=== PATIENT | male | born 1935 | race Caucasian/White ===

== ENCOUNTER 2017-12-26 15:56 | Inpatient (IN) | payer MEDICARE ==
[~2017-12-26] VITALS: Ht 177.8 cm; Wt 102.0 kg
--- NOTE | ~2017-12-26 | OP ---
PATIENT NAME: NICOLLE ROBERTSON MEDICAL RECORD: [id number] :34 LOCATION:D.M2 D.2115 ADMISSION DATE:12/27/17 SURGEON: OSCAR WALSH MD DATE OF OPERATION: 12/29/2017 PROCEDURES: 1. PTCA stent RCA. 2. Intravascular ultrasound RCA. 3. Selective coronary angiography. INDICATION: Angina and coronary artery disease. PROCEDURE IN DETAIL: After informed consent was obtained and after detailed explanation of risks, benefits as well as alternative therapies, the patient elected to proceed with angiogram and angioplasty. The right femoral area is prepped and draped in normal sterile fashion. The left femoral area was prepped and draped in normal sterile fashion. Left femoral artery was cannulated via modified Seldinger technique with placement of 6-Uzbek sheath. All catheters exchanged through this sheath. FINDINGS: The right coronary has 2 areas greater than 70% stenosis confirmed by intravascular ultrasound, the mid area was addressed with a 3.0 x 18 mm [place], and the proximal with 3.5 x 22 mm [place]. Result was 0% residual stenosis. OVERALL IMPRESSION: Successful percutaneous transluminal coronary angioplasty stent of the right coronary artery going from greater than 70% initial stenosis times 2 to 0% residual stenosis. TRANSINT:[id number] Voice Confirmation ID: [id number] DOCUMENT ID: [id number] OSCAR WALSH MD CC: [id number] DICTATION DATE: 12/30/17 1321 MICA PASTER: 12/30/17 1338 ADM IN [facility] [address] [place] [address]
--- NOTE | ~2017-12-26 | DS ---
PATIENT:NICOLLE ROBERTSON :33 MEDICAL RECORD: [id number] DISCHARGE SUMMARY ADMISSION DATE: 12/27/17 DISCHARGE DATE: 12/31/17 DISCHARGE DIAGNOSES: 1. Angina. 2. Coronary artery disease. 3. Percutaneous transluminal coronary angioplasty stent of the right coronary artery and left anterior descending this admission. 4. Chronic obstructive pulmonary disease. 5. Bronchitis. 6. Hyperlipidemia. 7. Hypertension. HOSPITAL COURSE: This is a gentleman who presents with anginal symptomatology as well as COPD, bronchitis, was treated medically for the COPD, bronchitis with antibiotics and pulmonary treatment, underwent cardiac catheterization revealing 2-vessel coronary artery disease, underwent successful PTCA stent of above territories, had an uneventful postop course. Discharged home with the addition of Augmentin times 5 days as well as Plavix to his medical regimen. He will follow up with [facility] in 1 month. TRANSINT:[id number] Voice Confirmation ID: [id number] DOCUMENT ID: [id number] OSCAR WALSH MD CC: [id number] DICTATION DATE: 12/31/17920 CIGAR BANDER: 12/31/17 1208 DIS IN 12/31/17 [facility] [address] [place] [address]
--- NOTE | ~2017-12-26 | OP ---
PATIENT NAME: NICOLLE ROBERTSON MEDICAL RECORD: [id number] :34 LOCATION:D.M2 D.2115 ADMISSION DATE:12/27/17 SURGEON: OSCAR WALSH MD DATE OF OPERATION: 12/29/2017 DATE OF SERVICE: 12/29/2017 PROCEDURES: 1. PTCA stent LAD. 2. Left heart catheterization. 3. Selective coronary angiography. 4. Left ventriculogram. INDICATION: Unstable angina and coronary artery disease. PROCEDURE IN DETAIL: After informed consent was obtained and after detailed explanation of risks, benefits as well as alternative therapies, the patient elected to proceed with angiogram and angioplasty. The right femoral area was prepped and draped in normal sterile fashion. The right femoral artery was cannulated via modified Seldinger technique with placement of 6-Tajik sheath. All catheters exchanged through this sheath. FINDINGS: Left ventriculogram was performed in a standard 30-degree CANAS view, reveals good cardiac wall motion throughout all segments. Overall ejection fraction estimated at 60%. SELECTIVE CORONARY ANGIOGRAPHY: 1. Left main showed no significant angiographic disease. 2. Left anterior descending has a 99% stenosis in the mid vessel. 3. Left circumflex has moderate irregularities, but no flow-limiting stenosis. 4. Right coronary has at least 70% stenosis proximally, better confirmed by intravascular ultrasound. PTCA STENT OF THE LEFT ANTERIOR DESCENDING: The stent used was a 2.5 x 22 and 3.0 x 18 both [place] stents. Result was 0% residual stenosis. OVERALL IMPRESSION: Successful percutaneous transluminal coronary angioplasty stent of the left anterior descending going from 99% initial stenosis to 0% residual. PLAN: PTCA stent of the RCA in the near future. TRANSINT:[id number] Voice Confirmation ID: [id number] DOCUMENT ID: [id number] OSCAR WALSH MD CC: [id number] DICTATION DATE: 12/29/1709 MATCH MARKER: 12/29/17 1159 ADM IN [facility] [address] [place] [address]
--- NOTE | ~2017-12-26 | HEMODYNAMI ---
PATIENT:NICOLLE ROBERTSON MEDICAL RECORD: [id number] : 34 [id number] ADMISSION DATE: 12/27/17 Generatedon:12/30/201713:27 Patient name: NICOLLE ROBERTSON Patient #: [id number] SSN: : 1935 Date of study: 12/30/2017 Page: Of Hemodynamic Procedure Report Patient Data Patient Demographics Procedure consent was obtained First Name: NICOLLE Gender: Male Last Name: AILYN : 1935 Middle Initial: MASOOD Age: 82 year(s) Patient #: [id number] Race: Additional ID: [id number] Contact details [address]: [address] [place] [address] State: [place] City: [place] Zip code: [address] Past Medical History History of disease Date Diagnosis Comments COPD Hypertension Allergies: No known allergies Admission Admission Data Admission Date: 12/27/2017 Admission Time: 12:53 Admit Source: Other Room #: D.2115 Lab Results Lab Result Date: 12/29/2017 Lab Result Time: 0:00 Biochemistry Name Units Result Min Max BUN mg/dl 13 --(--*-)-- 7 18 Creatinine mg/dl 0.9 --(-*--)-- 0.6 1.3 Procedure Procedure Types Cath Procedure Diagnostic Procedure FFR/IVUS Intra-Coronary IVUS Initial PCI Procedure Coronary Stent Coronary Stent Initial Procedure Description Procedure Date Procedure Date: 12/30/2017 Procedure Start Time: 13:09 Procedure End Time: 13:26 Procedure Staff Name Function Jovan Gonzalez MD Performing Physician John Tyler RT Monitor Cheikh Cervantes RN Nurse Lynne Clancy RT Scrub Procedure Data Cath Procedure Fluoroscopy Diagnostic fluoroscopy Total fluoroscopy Time: 3.5 time: 3.5 min min Diagnostic fluoroscopy Total fluoroscopy dose: dose: 106.78 mGy 106.78 mGy Contrast Material Contrast Material Type Amount (ml) Isovue 300 53 Entry Location Entry Primary Successful Side Size Upsize Upsize Entry Closure Succes sful Closure Location (Fr) 1 (Fr) 2 (Fr) Remarks Device Remarks Femoral Left 6 Fr Exoseal artery Short Estimated blood loss: 10 ml Procedure Medications Medication Administration Route Dosage Oxygen NC 2 l/min Lidocaine 2% added to field 20 Heparin Flush Bag added to field 2 bags (1000units/500ml NS) 0.9% NaCl I.V. 100 ml/hr Versed I.V. 1 mg Fentanyl I.V. 50 mcg Heparin Bolus I.V. 4000 units Hemodynamics Rest Heart Rate: 59 (bpm) Snapshots Pre Cath Intra NCS Post Cath Vital Signs Time Heart Resp SPO2 etCO2 NIBP (mmHg) Rhythm Pain Sedation Rate (ipm) (%) (mmHg) Status Level (bpm) 12:54:52 59 17 99 0 149/77(100) NSR 0 (11) 10(A) , No pain 12:59:14 60 17 100 47.1 143/79(107) NSR 0 (11) 10(A) , No pain 13:03:26 65 16 99 57.7 136/81(106) NSR 0 (11) 10(A) , No pain 13:07:48 69 14 93 1.5 140/70(102) NSR 0 (11) 10(A) , No pain 13:11:58 71 16 94 54.7 133/75(112) NSR 0 (11) 9(A) , No pain 13:17:06 66 15 93 25.8 121/63(87) NSR 0 (11) 9(A) , No pain 13:21:22 67 16 96 55.4 128/70(102) NSR 0 (11) 10(A) , No pain 13:25:42 72 10 98 41 129/57(105) NSR 0 (11) 10(A) , No pain Medications Time Medication Route Dose Verified Delivered Reason Notes Effectiveness by by 12:53:55 Oxygen NC 2 Jovan Salamanca used for l/min Carlos Cervantes ramp service man 12:54:04 Lidocaine 2% added 20ml Jovan Aldana for local to vial Carlos Gonzalez MD anesthetic field 12:54:10 Heparin Flush added 2 Jovan Aldana used for Bag to bags Carlos Gonzalez MD procedure (1000units/500ml field NS) 12:54:20 0.9% NaCl I.V. 100 Jovan Cheikh Per physician ml/hr Carlos Cervantes RN 13:09:21 Versed I.V. 1 mg Jovan Salamanca for sedation Carlos Cervantes RN 13:09:27 Fentanyl I.V. 50 Jovan Salamanca for sedation mcg Carlos Cervantes RN 13:10:35 Heparin Bolus I.V. 4000 Jovan Salamanca for verifi ed units Carlos Cervantes RN anticoagulation with dr gonzalez Procedure Log Time Note 12:34:58 Diagnostic Cath Status : Elective 12:38:19 Cheikh Cervantes RN sent for patient. Start room use. 12:38:55 Time tracking: Regular hours 12:39:01 Plan of Care:Hemodynamics will remain stable., Cardiac rhythm will remain stable., Comfort level will be maintained., Respiratory function will remain adequate., Patient/ family verbilizes understanding of procedure., Procedure tolerated without complication., Recovers from procedure without complications.. 12:46:40 Patient received from PCU to CCL 3 Alert and oriented. Tansferred to table in Supine position. 12:46:44 Warm blankets applied, and bret hugger turned on for patient comfort. 12:46:44 Correct patient and procedure confirmed by team. 12:46:46 Signed procedure consent form obtained from patient. 12:46:47 ECG and BP/O2 sat monitors applied to patient. 12:53:33 Vital chart was started 12:53:34 Baseline sample Acquired. 12:53:43 Rhythm: sinus rhythm 12:53:45 Full Disclosure recording started 12:53:55 Oxygen 2 l/min NC was administered by Cheikh Cervantes RN; used for procedure; 12:54:04 Lidocaine 2% 20ml vial added to field was administered by Jovan Gonzalez MD; for local anesthetic; 12:54:10 Heparin Flush Bag (1000units/500ml NS) 2 bags added to field was administered by Jovan Gonzalez MD; used for procedure; 12:54:20 0.9% NaCl 100 ml/hr I.V. was administered by Cheikh Cervantes RN; Per physician; 12:54:33 H&P Date Dictated: 12/27/2017 Within 30 days and on chart.. 12:54:38 Pre-procedure instructions explained to patient. 12:54:40 Pre-op teaching completed and patient verbalized understanding. 12:54:42 Family in waiting room. 12:54:45 Patient NPO since Midnight. 12:54:52 Patient allergic to No known allergies 12:54:55 Is the patient allergic to Iodine/contrast media? No. 12:54:57 Is patient on blood thinner?Yes 12:55:01 ACC The patient was administered the following blood thiners within the last 24 hours: ACCPlavix 12:55:05 Patient diabetic? No. 12:55:08 ----Pre-sedation anethsthesia assessment.---- 12:55:10 Previous problem with sedation/anesthesia? No ? 12:55:13 Snore? Yes 12:55:14 Sleep apnea? No 12:55:21 Deviated septum? No 12:55:22 Opens mouth fully? Yes 12:55:24 Sticks out tongue? Yes 12:55:30 Airway obstruction? No ? 12:56:01 Dentures? No ? 12:56:18 Patient pain scale 0/10 ?. 12:59:36 IV patent on arrival in left forearm with 0.9% NaCl at [facility]. 13:06:28 Left groin area was prepped with chlora-prep and draped in sterile fashion 13:06:30 Alarms reviewed by R. N. 13:06:31 Sharps counted by scrub and verified by R.N. 13:06:34 Physician arrived 13:06:34 --------ALL STOP TIME OUT------ 13:06:35 Final Timeout: patient, procedure, and site verified with staff and physician. All members of the team are in agreement. 13:06:38 Left groin site verified by team. 13:06:44 Physical assessment completed. ASA score P 2 - A patient with mild systemic disease as per Jovan Gonzalez MD. 13:06:49 Sedation plan: IV Moderate Sedation Medication:Versed, Fentanyl 13:07:47 Use device set CARLOS PCI 13:07:49 INFLATOR Merit BasixCompak (OQ8792) opened to sterile field. 13:08:03 SHEATH 6FR [place] (SQR228) opened to sterile field. 13:08:08 WHISPER 300cm guide wire ([id number]) opened to sterile field. 13:08:20 Use device set Femoral Dx 13:08:25 PERCUTANEOUS ENTRY 19GA needle opened to sterile field. 13:08:29 ACIST Hand Control (90349) opened to sterile field. 13:08:30 ACIST Manifold (09310) opened to sterile field. 13:08:36 DIAGNOSTIC WIRE .035 260cm J wire (544399) opened to sterile field. 13:08:38 Medline Cath Pack ([id number]) opened to sterile field. 13:08:39 Bag Decanter (2002S) opened to sterile field. 13:08:41 ACIST Syringe (71925) opened to sterile field. 13:09:21 Versed 1 mg I.V. was administered by Cheikh Cervantes RN; for sedation; 13:09:27 Fentanyl 50 mcg I.V. was administered by Cheikh Cervantes RN; for sedation; 13:09:37 GUIDE 6FR HS II catheter (BL5UYHR) opened to sterile field. 13:09:44 Procedure started. 13:09:50 Local anesthetic to left femerol artery with Lidocaine 2% by Jovan Gonzalez MD.INITIAL ACCESS ONLY 13:10:00 A 6 Fr Short sheath was inserted into the Left Femoral artery 13:10:35 Heparin Bolus 4000 units I.V. was administered by Cheikh Cervantes RN; for anticoagulation; verified with dr gonzalez 13:11:57 6 Fr HS 2 guide catheter was inserted over the wire 13:13:18 [employer] [place] IVUS Catheter (24346P) opened to sterile field. 13:13:47 WHISPER wire advanced. 13:13:48 Wire advanced across lesion. 13:13:53 FFR/IVUS 13:13:53 IVUS catheter advanced over wire. 13:13:57 IVUS pass to RCA lesion performed. 13:13:58 IVUS catheter removed over wire. 13:14:59 LESION 70% 13:16:15 Inflation Number: 1 A SAGAR OTW 3.0 x 18 stent ([id number]) was prepped and advanced across the Mid RCA. The stent was deployed at 17 MYNOR for 0:10 (min:sec). 13:16:20 Stent catheter was removed intact over wire. 13:18:07 Inflation Number: 1 A SAGAR OTW 3.5 x 22 stent ([id number]) was prepped and advanced across the Prox RCA. The stent was deployed at 17 MYNOR for 0:10 (min:sec). 13:18:13 Stent catheter was removed intact over wire. 13:18:42 EXOSEAL 6Fr (EX600) opened to sterile field. 13:18:55 Wire removed. 13:18:56 Guide catheter removed. 13:19:06 Sheath removed intact; hemostasis achieved with Exoseal to the Left Femoral artery. 13:19:12 Procedure ended.(Physican Out) 13:19:17 Fluoroscopy time 03.50 minutes. 13:19:24 Fluoroscopy dose: 106.78 mGy 13:19:24 Flurop Dose total: 106.78 13:19:37 Contrast amount:Isovue 300 53ml. 13:19:39 Sharps counted by scrub and verified by R.N. 13:19:55 Procedure type changed to Cath procedure, Diagnostic procedure, FFR/IVUS, Intra-Coronary IVUS Initial, PCI procedure, Coronary Stent, Coronary Stent Initial 13:23:57 Insertion/operative site no bleeding no hematoma. 13:24:00 Post-op/insertion site Left Femoral artery dressed using a 4 x 4 and Tegaderm. 13:24:05 Post left femerol artery:stable 13:24:17 Post-procedure physical assessment completed. ASA score P 2 - A patient with mild systemic disease as per Jovan Gonzalez MD. 13:24:32 Post procedure rhythm: unchanged. 13:24:35 Estimated blood loss: 10 ml 13:24:37 Post procedure instruction explained to patient.Patient verbalizes understanding. 13:24:38 Patient needs reinforcement of post procedure teaching. 13:25:04 Procedure and supply charges have been captured, reviewed, submitted and are correct. 13:26:12 Vital chart was stopped 13:26:13 See physician's report for complete and final results. 13:26:24 Report given to PCU. 13:26:53 Patient transfered to PCU with Bed. 13:26:56 Procedure ended. 13:26:56 Full Disclosure recording stopped 13:26:59 End room use (Document Last) Intervention Summary Intervention Notes Time ActionType Lesion and Equipment Action# Pressure Duration Attributes Used 13:16:15 Place stent Mid RCA SAGAR OTW 3.0 1 17 00:10 x 18 stent ([id number]) 13:18:07 Place stent Prox RCA SAGAR OTW 3.5 1 17 00:10 x 22 stent ([id number]) Device Usage Item Name Manufacture Quantity Catalog Hospital Part Current Mini mal Lot# / Number Charge Number Stock Stock Serial# Code INFLATOR Sharita 1 [id number] 506965 175954 15 [place] BasixCompak (RH7575) SHEATH 6FR Terumo 1 [id number] 715781 773521 335886 40 [place] (KPO734) WHISPER 300cm Lopez 1 [id number] 251155 245985 852737 5 guide wire Vascular ([id number]) PERCUTANEOUS Cook Medical 1 [id number] 745269 349407 5 ENTRY 19GA needle ACIST Hand Acist 1 25428 489228 699241 707447 5 Control Medical (61425) Systems Inc ACIST Acist 1 15504 339481 079461 769792 5 Manifold Medical (45288) Systems Inc DIAGNOSTIC [place] 1 814956 703864 528230 292269 30 WIRE .035 260cm J wire (755783) Medline Cath Cardinal 1 [id number] 310461 16382 266819 5 Pack Neurosearch ([id number]) Bag Decanter Microtek 1 2001S 941176 45560 266565 5 () Medical Inc. ACIST Syringe Acist 1 67965 451064 376239 317348 20 (67440) Medical Systems Inc GUIDE 6FR HS Medtronic 1 [id number] 366893 23493 473744 1 II catheter (PG0MRUB) Tiona Tiona 1 [id number] 848591 265870 544811 8 [place] IVUS Catheter (65250K) SAGAR OTW 3.0 Medtronic 1 [id number] 656089 4211366 287118 5 [id number] x 18 stent ([id number]) SAGAR OTW 3.5 Medtronic 1 [id number] 137175 0071569 704029 5 [id number] x 22 stent ([id number]) EXOSEAL 6Fr Cardinal 1 EX600 748699 125283 681171 10 (EX600) Health Signature Audit [place] Stage Time Signature Unsigned Intra-Procedure 12/30/2017 John Tyler 1:27:40 PM RT(R) (CV) Signatures Monitor : John Tyler RT Signature : Date : Time : [address] [place] [address]
--- NOTE | ~2017-12-26 | HP ---
PATIENT: NICOLLE VIERA MEDICAL RECORD: [id number] ACCOUNT: [id number] LOCATION:[facility].2115 : 34 ADMISSION DATE: 12/26/17 HISTORY AND PHYSICAL EXAMINATION DIAGNOSES: 1. Shortness of breath, dyspnea on exertion. 2. Angina. 3. Coronary artery disease. 4. Previous PTCA stent in 2014, LAD. 5. COPD. 6. Hypertension. 7. Hyperlipidemia. HISTORY OF PRESENT ILLNESS: Mr. Viera presents with shortness of breath and chest pressure. He does have a history of coronary artery disease, PTCA stent in 2014. His symptomatology prior to that stent is very similar to his symptomatology now; however, he does have COPD. He is on nebulizers at home. He has noticed some dark sputum as well. He has not noticed any overt fevers, rigors or episodes of diaphoresis. His chest x-ray is not impressive for an acute pneumonia process, only the chronic changes from his COPD. PHYSICAL EXAMINATION: GENERAL APPEARANCE: Well-nourished, well-developed, appears stated age. Level of distress, comfortable. PSYCHIATRIC: Mental status, alert, normal affect. Orientation, oriented to time, place and person. EYES: Lids and conjunctiva, noninjected. No discharge, no pallor. ENT: Lips, teeth, gums, normal dentition. Oropharynx, no cyanosis, no pallor. NECK: Carotid arteries, bilateral normal upstroke, no bruits, no thrills. JUGULAR VEINS: No jugular venous pressure or distention. CERVICAL LYMPH NODES: Nontender, nonenlarged. THYROID: Not enlarged. Nontender. No nodules. LUNGS: Respiratory effort, unlabored. CHEST: Normal curvature. No thoracic deformity. No chest wall tenderness. Percussion, resonant. Auscultation, clear. No wheezes, no rales, no rhonchi. CARDIOVASCULAR: Precordial exam, nondisplaced. No heaves or pericardial thrills. Rate and rhythm, regular. Heart sounds, normal S1, normal S2. No S3, no gallop, no rub. Systolic murmur, not heard. Diastolic murmur, not heard. EXTREMITIES: No cyanosis, no edema. Peripheral pulses, full and equal in all extremities, except as noted. No bruits appreciated. ABDOMEN: Soft, nondistended. Normal aorta. No bruit. Nontender. No masses. Liver, nontender, no hepatomegaly. Spleen, nontender, no splenomegaly. MUSCULOSKELETAL: No joint tenderness. No joint swelling. No erythema. NEUROLOGICAL: Normal gait, normal strength, normal tone. SKIN: Warm and dry. OVERALL IMPRESSION: Shortness of breath, dyspnea on exertion, most likely this is a combination of recurrent hemodynamically significant coronary artery disease as well as COPD and with the dark sputum production, most likely he does have a bronchitis. We will start IV Rocephin so this does not progress to pneumonia. Continue his nebulization as well as his other medications such as Pulmicort from a pulmonary standpoint and proceed with coronary angiography in the near future. HISTORY AND PHYSICAL [id number] NICOLLE VIERA MASOOD TRANSINT:[id number] Voice Confirmation ID: [id number] DOCUMENT ID: [id number] OSCAR WALSH MD CC: [id number] DICTATION DATE: 12/27/17806 DOT NET ARCHITECT: 12/27/17827 ADM IN [facility] [address] [place] [address]
--- NOTE | ~2017-12-26 | HEMODYNAMI ---
PATIENT:NICOLLE ROBERTSON MEDICAL RECORD: [id number] : 33 [facility] ADMISSION DATE: 12/27/17 Generatedon:12/29/20179:12 Patient name: NICOLLE ROBERTSON Patient #: [id number] SSN: : 1935 Date of study: 12/29/2017 Page: Of Hemodynamic Procedure Report Patient Data Patient Demographics Procedure consent was obtained First Name: NICOLLE Gender: Male Last Name: AILYN : 1935 Middle Initial: MASOOD Age: 82 year(s) Patient #: [id number] Race: Additional ID: [id number] Contact details Address: [address] [place] [address] State: [place] City: [place] Zip code: [address] Past Medical History History of disease Date Diagnosis Comments COPD Hypertension Allergies: No known allergies Admission Admission Data Admission Date: 12/27/2017 Admission Time: 12:53 Admit Source: Other Room #: D.2115 Lab Results Lab Result Date: 12/29/2017 Lab Result Time: 0:00 Biochemistry Name Units Result Min Max BUN mg/dl 13 --(--*-)-- 7 18 Creatinine mg/dl 0.9 --(-*--)-- 0.6 1.3 Procedure Procedure Types Cath Procedure Diagnostic Procedure [facility] w/Coronaries PCI Procedure Coronary Stent Coronary Stent Initial Procedure Description Procedure Date Procedure Date: 12/29/2017 Procedure Start Time: 8:43 Procedure End Time: 9:11 Procedure Staff Name Function Jovan Gonzalez MD Performing Physician John Tyler RT Monitor Diego Mauricio RT Scrub Cheikh Cervantes RN Nurse Procedure Data Cath Procedure Fluoroscopy Diagnostic fluoroscopy Total fluoroscopy dose: dose: 740.17 mGy 740.17 mGy Contrast Material Contrast Material Type Amount (ml) Isovue 300 128 Entry Location Entry Primary Successful Side Size Upsize Upsize Entry Closure Succes sful Closure Location (Fr) 1 (Fr) 2 (Fr) Remarks Device Remarks Femoral Right 5 Fr 6 Fr Exoseal artery Short Estimated blood loss: 10 ml Diagnostic catheters Device Type Used For End Catheter Placement MULTIPACK Pigtail 5 Fr Procedure catheter MULTIPACK JL 4.0 5Fr Procedure catheter MULTIPACK 3DRC 5Fr Procedure catheter DIAGNOSTIC JL 6 5Fr Procedure catheter ([id number]) Procedure Medications Medication Administration Route Dosage Oxygen NC 2 l/min Heparin Flush Bag added to field 2 bags (1000units/500ml NS) 0.9% NaCl I.V. 100 ml/hr Fentanyl I.V. 50 mcg Versed I.V. 1 mg Heparin Bolus I.V. 4000 units Hemodynamics Rest Heart Rate: 68 (bpm) Pressure Samples Time Site Value (mmHg) Purpose Heart Use Rate(bpm) 8:43 LV 81/8,17 Snapshot 79 Snapshots Pre Cath Intra NCS Post Cath Vital Signs Time Heart Resp SPO2 etCO2 NIBP (mmHg) Rhythm Pain Sedation Rate (ipm) (%) (mmHg) Status Level (bpm) 8:29:40 68 16 99 0 176/94(149) NSR 0 (11) 10(A) , No pain 8:34:10 65 15 93 0 140/75(108) NSR 0 (11) 10(A) , No pain 8:38:38 68 16 87 0 132/67(100) NSR 0 (11) 10(A) , No pain 8:43:01 67 16 93 0 133/66(99) NSR 0 (11) 9(A) , No pain 8:48:18 67 16 96 0 133/64(91) NSR 0 (11) 9(A) , No pain 8:53:34 66 16 98 0 122/59(100) NSR 0 (11) 9(A) , No pain 8:57:54 65 15 98 0 120/60(87) NSR 0 (11) 9(A) , No pain 9:02:10 66 16 98 0 121/60(105) NSR 0 (11) 9(A) , No pain 9:06:26 71 16 100 0 140/78(123) NSR 0 (11) 9(A) , No pain 9:10:50 68 15 97 0 145/76(114) NSR 0 (11) 9(A) , No pain Medications Time Medication Route Dose Verified Delivered Reason Notes Effectiveness by by 8:34:18 Oxygen NC 2 Jovan Salamanca Per physician l/min Carlos Cervantes RN 8:34:27 Heparin Flush added 2 Jovan Cheikh used for Bag to bags Carlos Cervantes inhalation therapy aides teacher (1000units/500ml field NS) 8:34:36 0.9% NaCl I.V. 100 Jovan Salamanca Per physician ml/hr Carlos Cervantes RN 8:38:08 Fentanyl I.V. 50 Jovan Salamanca for sedation mcg Carlos Cervantes RN 8:38:14 Versed I.V. 1 mg Jovan Salamanca for sedation Carlos Cervantes RN 8:51:23 Heparin Bolus I.V. 4000 Jovan Salamanca for units Carlos Cervantes RN anticoagulation Procedure Log Time Note 8:00:46 John Tyler RT(R) (CV) sent for patient. Start room use. 8:08:24 Lab Result : BUN 13 mg/dl 8:08:24 Lab Result : Creatinine 0.9 mg/dl 8:18:32 Admit Source: Other 8:18:44 Diagnostic Cath status Elective 8:18:51 Time tracking: Regular hours 8:18:53 Plan of Care:Hemodynamics will remain stable., Cardiac rhythm will remain stable., Comfort level will be maintained., Respiratory function will remain adequate., Patient/ family verbilizes understanding of procedure., Procedure tolerated without complication., Recovers from procedure without complications.. 8:18:58 Patient received from Med II to CCL 3 Alert and oriented. Tansferred to table in Supine position. 8:18:59 Warm blankets applied, and bret hugger turned on for patient comfort. 8:18:59 Correct patient and procedure confirmed by team. 8:19:00 Signed procedure consent form obtained from patient. 8:19:01 ECG and BP/O2 sat monitors applied to patient. 8:28:14 Vital chart was started 8:32:47 Baseline sample Acquired. 8:33:09 Rhythm: sinus rhythm 8:33:11 Full Disclosure recording started 8:33:22 H&P Date Dictated: 12/26/2017 Within 30 days and on chart.. 8:33:24 Pre-procedure instructions explained to patient. 8:33:24 Pre-op teaching completed and patient verbalized understanding. 8:33:29 Family unavailable. 8:33:33 Patient NPO since Midnight. 8:33:42 Patient allergic to No known allergies 8:33:55 Is the patient allergic to Iodine/contrast media? No. 8:33:57 Is patient on blood thinner?Yes 8:34:01 ACC The patient was administered the following blood thiners within the last 24 hours: ACCPlavix 8:34:04 Patient diabetic? No. 8:34:06 ----Pre-sedation anethsthesia assessment.---- 8:34:08 Previous problem with sedation/anesthesia? No ? 8:34:10 Snore? Yes 8:34:11 Sleep apnea? No 8:34:12 Deviated septum? No 8:34:13 Opens mouth fully? Yes 8:34:14 Sticks out tongue? Yes 8:34:17 Airway obstruction? No ? 8:34:18 Oxygen 2 l/min NC was administered by Cheikh Cervantes RN; Per physician; 8:34:22 Dentures? No ? 8:34:27 Heparin Flush Bag (1000units/500ml NS) 2 bags added to field was administered by Cheikh Cervantes RN; used for procedure; 8:34:29 Pre procedure: right dorsailis pedis pulse 1+ Palpable, but thready & weak; easily obliterated 8:34:32 Modified Scotty's test Ulnar < 7 seconds 8:34:35 Patient pain scale 0/10 ?. 8:34:36 0.9% NaCl 100 ml/hr I.V. was administered by Cheikh Cervantes RN; Per physician; 8:34:42 IV patent on arrival in left hand with 0.9% NaCl at [facility]. 8:34:50 Right Radial & Right Groin area was prepped with chlora-prep and draped in sterile fashion 8:34:51 Alarms reviewed by R. N. 8:34:52 Sharps counted by scrub and verified by R.N. 8:36:45 Physician arrived 8:36:46 --------ALL STOP TIME OUT------ 8:36:46 Final Timeout: patient, procedure, and site verified with staff and physician. All members of the team are in agreement. 8:36:48 Right Radial & Right Groin site verified by team. 8:36:57 Physical assessment completed. ASA score P 2 - A patient with mild systemic disease as per Jovan Gonzalez MD. 8:38:08 Fentanyl 50 mcg I.V. was administered by Cheikh Cervantes RN; for sedation; 8:38:14 Versed 1 mg I.V. was administered by Cheikh Cervantes RN; for sedation; 8:38:34 Sedation plan: IV Moderate Sedation Medication:Versed, Fentanyl 8:39:17 Use device set Radial Dx or PCI 8:39:18 ACIST Syringe (38572) opened to sterile field. 8:39:19 Medline Cath Pack ([id number]) opened to sterile field. 8:39:20 Bag Decanter (2002S) opened to sterile field. 8:39:23 DIAGNOSTIC WIRE .035 260cm J wire (464564) opened to sterile field. 8:39:24 ACIST Hand Control (26727) opened to sterile field. 8:39:25 ACIST Manifold (55233) opened to sterile field. 8:39:32 Tegaderm 4 x 4 (1626W) opened to sterile field. 8:39:33 MBrace Wrist Support ([id number]) opened to sterile field. 8:40:08 Use device set Femoral Dx 8:40:41 SHEATH 5FR [place] (UNB760) opened to sterile field. 8:40:45 DIAGNOSTIC Multipack 5Fr catheter set (UN7305) opened to sterile field. 8:40:48 PERCUTANEOUS ENTRY 19GA needle opened to sterile field. 8:41:00 Procedure started. 8:41:26 Local anesthetic to right femoral artery with Lidocaine 2% by Jovan Gonzalez MD.INITIAL ACCESS ONLY 8:41:58 UNABLE TO GET RADIAL ACCESS 8:43:02 A 5 Fr sheath was inserted into the Right Femoral artery 8:43:15 A MULTIPACK Pigtail 5 Fr catheter was advanced over the wire and used for Procedure. 8:43:20 Zero performed for pressure channel P1 8:43:55 LV gram done using CANAS 8:43:56 LV hemodynamics recorded. 8:44:01 EF : 60 % 8:44:50 Catheter removed. 8:44:58 A MULTIPACK JL 4.0 5Fr catheter was advanced over the wire and used for Procedure. 8:45:11 Catheter removed. 8:45:20 A MULTIPACK 3DRC 5Fr catheter was advanced over the wire and used for Procedure. 8:45:39 RCA angiography performed. 8:45:59 Catheter removed. 8:46:13 A DIAGNOSTIC JL 6 5Fr catheter (035319X) was advanced over the wire and used for Procedure. 8:47:02 LCA angiography performed. 8:48:12 Catheter removed. 8:48:39 SHEATH 6FR [place] (GDP638) opened to sterile field. 8:48:40 INFLATOR Merit BasixCompak (SO8186) opened to sterile field. 8:48:46 Sheath upsized to a 6 Fr Short. 8:49:50 GUIDE 6FR EBU 4.5 catheter (DH1ALC74) opened to sterile field. 8:50:31 FIELDER XT J 300cm guide wire ([id number]) opened to sterile field. 8:50:40 Proceeding to intervention. 8:51:00 6 Fr EBU 4.5 guide catheter was inserted over the wire 8:51:23 Heparin Bolus 4000 units I.V. was administered by Cheikh Cervantes RN; for anticoagulation; 8:51:50 FIELDER wire advanced. 8:54:15 Wire advanced across lesion. 8:55:06 Inflation number: 1 A MAVERICK 1.5 X 20 balloon ([id number]) was prepped and advanced across the Prox LAD, then inflated to 23 MYNOR for 0:10 (min:sec). 8:55:48 CHOICE PT Extra Support J 300cm guide wire ([id number]) opened to sterile field. 8:56:34 FIELDER REMOVED CHOICE PT INSERTED 8:57:09 Balloon removed over the wire. 8:58:33 Inflation number: 2 A EUPHORA 2.5 x 20 Balloon ([id number]) was prepped and advanced across the Prox LAD, then inflated to 21 MYNOR for 0:10 (min:sec). 8:58:52 Balloon removed over the wire. 9:00:38 Inflation Number: 3 A SAGAR OTW 2.5 x 22 stent ([id number]) was prepped and advanced across the Prox LAD. The stent was deployed at 21 MYNOR for 0:10 (min:sec). 9:02:27 Stent catheter was removed intact over wire. 9:03:43 Inflation Number: 4 A SAGAR OTW 3.0 x 18 stent ([id number]) was prepped and advanced across the Prox LAD. The stent was deployed at 17 MYNOR for 0:10 (min:sec). 9::26 Stent catheter was removed intact over wire. 9:: Wire removed. 9:: Guide catheter removed. 9:04:46 EXOSEAL 6Fr (EX600) opened to sterile field. 9::58 Sheath removed intact; hemostasis achieved with Exoseal to the Right Femoral artery. 9:05:21 Procedure ended.(Physican Out) 9:07:52 Fluoroscopy dose: 740.17 mGy 9::52 Flurop Dose total: 740.17 9::58 Contrast amount:Isovue 300 128ml. 9:07:59 Sharps counted by scrub and verified by R.N. 9:08:12 Procedure type changed to Cath procedure, Diagnostic procedure, LHC, LHC w/Coronaries, PCI procedure, Coronary Stent, Coronary Stent Initial 9:09:27 Insertion/operative site no bleeding no hematoma. 9:09:33 Post-op/insertion site Right Femoral artery dressed using a 4 x 4 and Tegaderm. 9:09:37 Post right femoral artery:stable 9:09:49 Post Procedure Pulses reassessed and unchanged 9:09:53 Post-procedure physical assessment completed. ASA score P 2 - A patient with mild systemic disease as per Jovan Gonzalez MD. 9:09:56 Post procedure rhythm: sinus rhythm 9:10:00 Estimated blood loss: 10 ml 9:10:02 Post procedure instruction explained to patient.Patient verbalizes understanding. 9:10:02 Patient needs reinforcement of post procedure teaching. 9:10:03 Procedure and supply charges have been captured, reviewed, submitted and are correct. 9:11:00 Vital chart was stopped 9:11:02 See physician's report for complete and final results. 9:11:13 Report given to PCU. 9:11:18 Patient transfered to PCU with Bed. 9:11:24 Procedure ended. 9:11:24 Full Disclosure recording stopped 9:11:29 End room use (Document Last) Intervention Summary Intervention Notes Time ActionType Lesion and Equipment Action# Pressure Duration Attributes Used 8:55:06 Inflate Prox LAD MAVERICK 1.5 1 23 00:10 balloon X 20 balloon ([id number]) 8:58:33 Inflate Prox LAD EUPHORA 2.5 x 2 21 00:10 balloon 20 Balloon ([id number]) 9:00:38 Place stent Prox LAD SAGAR OTW 2.5 3 21 00:10 x 22 stent ([id number]) 9:03:43 Place stent Prox LAD SAGAR OTW 3.0 4 17 00:10 x 18 stent ([id number]) Device Usage Item Name Manufacture Quantity Catalog Number Hospital Part Current M inimal Lot# / Charge Number Stock Stock Serial# Code ACIST Syringe Acist 1 16062 131550 910909 602280 2 0 (55502) Medical Systems Inc Medline Cath Cardinal 1 [id number] 497619 01157 321523 5 [employer] ([id number]) Bag Decanter Microtek 1 2001S 763241 56698 375447 5 (2001S) Medical Inc. DIAGNOSTIC [place] 1 949438 371968 029736 404477 3 0 WIRE .035 260cm J wire (828286) ACIST Hand Acist 1 23935 307086 754843 560081 5 Control Medical (55617) Systems Inc ACIST Acist 1 00040 479833 547547 887725 5 Manifold Medical (95986) Systems Inc Tegaderm 4 x 3M 1 1626W 063878 886311 149666 5 4 (1626W) MBrace Wrist Advanced 1 140-0250-00 696393 37245 814978 5 Support Vascular (253414217) Dynamics SHEATH 5FR Terumo 1 OFU679 709593 603603 339802 4 0 [place] (TWT756) DIAGNOSTIC Cardinal 1 XY7451 778205 46536 055798 3 0 Multipack 5Fr Health catheter set (OS5766) PERCUTANEOUS Cook Medical 1 P19152 033573 512338 5 ENTRY 19GA needle MULTIPACK Cardinal 1 144679 5 Pigtail 5 Fr Health catheter MULTIPACK JL Cardinal 1 079756 5 4.0 5Fr Health catheter MULTIPACK Cardinal 1 420172 5 3DRC 5Fr Health catheter DIAGNOSTIC JL Cardinal 1 [id number] 132517 500488 693862 5 6 5Fr Health catheter (174006H) SHEATH 6FR Terumo 1 PBQ842 721602 463276 691040 4 0 [place] (DAP245) INFLATOR Merit 1 FA7551 504213 747328 254139 1 5 [facility] Medical BasixCompak (HN7127) GUIDE 6FR EBU Medtronic 1 [id number] 601905 10642 651024 0 4.5 catheter (FK6ENX62) FIELDER XT J Lopez 1 CFQ013152 791579 416218 538730 5 300cm guide Vascular wire ([id number]) MAVERICK 1.5 [place] 1 [id number] 175346 414245 720754 1 X 20 balloon Scientific (8636798876) CHOICE PT [place] 1 [id number] 763172 970108 433141 5 Extra Support Scientific J 300cm guide wire (9640358V1) EUPHORA 2.5 x Medtronic 1 [id number] 561240 289453 489185 5 20 Balloon (IPH7730E) SAGAR OTW 2.5 Medtronic 1 [id number] 859255 26783 534345 5 [id number] x 22 stent ([id number]) SAGAR OTW 3.0 Medtronic 1 [id number] 452592 4599243 382525 5 [id number] x 18 stent ([id number]) EXOSEAL 6Fr Cardinal 1 EX600 514194 881344 731602 1 0 (EX600) Health Signature Audit [place] Stage Time Signature Unsigned Intra-Procedure 12/29/2017 John Tyler 9:12:15 AM RT(R) (CV) Signatures Monitor : John Tyler RT Signature : Date : Time : [facility] [address] [place] [address]
--- NOTE | ~2017-12-26 | EC ---
PATIENT:NICOLLE ROBERTSON DATE OF SERVICE: 12/27/17 SEX: M MEDICAL RECORD: [id number] DATE OF : 34 LOCATION:D.M2 D.211 AGE OF PATIENT: 82 ADMISSION DATE: 12/27/17 REFERRING PHYSICIAN: INTERPRETING PHYSICIAN: OSCAR GONZALEZ MD ECHOCARDIOGRAM REPORT ECHO CHARGES 4 ECHO COMPLETE CLINICAL DIAGNOSIS: CHF ECHOCARDIOGRAPHIC MEASUREMENTS (adult normal given) AC root (d.<3.7cm) 3.1 cm LV Septum d (<1.2 cm> 2.2 cm Valve Excursion 1.9 cm LV Septum (systole) 3.0 cm Left Atria (s.<4.0cm> 3.8 cm LVPW d(<1.2cm) 1.9 cm RV (d.<2.3cm) 2.2 cm LVPW (sytole) 2.8 cm LV diastole(<5.6CM) 4.5 cm MV E-F(>70mm/sec) cm LV systole 2.1 cm LVOT Diameter 2.4 cm MV exc.(>10mm) cm Est.ejection fraction (50-75%) % Pericardial Effusion N DOPPLER: LVIT cm/sec A 80.0 cm/sec E 56.0 cm/sec LA cm/sec RVSP mmHg LVOT 179 cm/sec AOP1/2T m/s Asc. Ao 205 cm/sec RVOT 104 cm/sec RA cm/sec PA 93.0 cm/sec AV Gradient Peak 17.0 mmHg AV Mean 7.9 mmHg AV Area 4.0 cm MV Gradient Peak 4.5 mmHg MV Mean 1.6 mmHg MV Area cm COMMENTS: E Business Consultant: Meli KERNSOE Assistant Foreman: 1 Dr. Gonzalez TAPE# PACS DATE OF SERVICE: 12/27/2017 Echocardiogram FINDINGS: 1. Left ventricular chamber size is within normal limits. Left ventricular systolic function is normal. Overall ejection fraction estimated at 55%. 2. Left atrium, right atrium, and right ventricular chamber sizes are within normal limits. 3. Valvular structures have normal structure and motion. ECHOCARDIOGRAM REPORT [id number] NICOLLE ROBERTSON 4. Doppler interrogation reveals moderate mitral regurgitation. No other valvular insufficiency or stenosis. 5. No evidence of pericardial effusion or left ventricular thrombus. TRANSINT:[id number] Voice Confirmation ID: [id number] DOCUMENT ID: [id number] OSCAR GONZALEZ MD CC: [id number] DICTATION DATE: 12/28/1743 WAITER AND CASHIER: 12/28/17 1217 ADM IN [facility] [address] [place] [place] [id number]
[~2017-12-26 15:56] MED LIST: BAYER CHEWABLE81 MG PO; IPRAT-ALBUT 0.5-3 ML UPD; LOPRESSOR25 MG PO; LOVASTATIN20 MG PO; MUCINEX DM ER1 EAC1 PO; PERFOROMIS20 MCG/21 UPD; PLENDIL5 MG PO; PREDNISONE1 MG PO; PREDNISONE20 MG PO; PREDNISONE5 MG PO; PULMICORT0.5 MG/21 UPD; SINGULAIR10 MG PO; TESSALON PERLE100 MG PO
[2017-12-26 16:40] LABS: BASOPHILS 0.3 % (0-2); EOSINOPHILS 0.7 % (0-7); HEMATOCRIT 35.4 % (42.0-54.0); HEMOGLOBIN 11.4 g/dL (13.5-17.5); IMMATURE GRANULOCYTES 0.2 % (0-5); LYMPHOCYTES 12.2 % (15-50); MCH 31.1 pg (26.0-34.0); MCHC 32.2 g/dL (31.0-37.0); MCV 96.5 fL (80.0-100.0); MEAN PLATELET VOLUME 10.4 fL (7.4-10.4); MONOCYTES 6.9 % (2-11); NEUTROPHILS 79.7 % (40-80); PLATELET COUNT 173 10x3/uL (130-400); RBC 3.67 10x6/uL (4.20-6.10); RDW 12.5 % (11.5-14.5); WBC 6.1 10x3/uL (4.8-10.8)
[2017-12-26 16:58] LABS: ALBUMIN 3.7 g/dL (3.4-5.0); ALKALINE PHOSPHATASE 48 U/L (46-116); ALT (SGPT) 27 U/L (10-68); BILIRUBIN - TOTAL 0.47 mg/dL (0.2-1.3); CALC OSMOLALITY 282 mosm/kg (275-300); CALCIUM 8.2 mg/dL (8.5-10.1); CARBON DIOXIDE 31.6 mmol/L (21.0-32.0); CHLORIDE - SERUM 103 mmol/L (98-107); CREATININE - SERUM 0.9 mg/dL (0.6-1.3); GLUCOSE 134 mg/dL (74-106); PROTEIN - SERUM 6.6 g/dL (6.4-8.2); SODIUM 141 mmol/L (136-145); UREA NITROGEN 13 mg/dL (7-18); eGFR NON AFRICAN AMERICAN 85 mL/min (90-120)
[2017-12-26 17:07] LABS: CKMB 2.2 U/L (0.0-3.6); CREATINE KINASE 162 UL (21-232); MAGNESIUM - SERUM 2.2 mg/dL (1.8-2.4); PRO BNP 219 pg/mL (0-450)
[2017-12-26 17:10] LABS: TROPONIN-I 0.017 ng/mL (0.000-0.060)
[2017-12-26 20:43] VITALS: BP 140/83; BMI 32.5
[2017-12-26] MEDS ORDERED: FUROSEMIDE20 MG PO (21:01)
[2017-12-26] MEDS ORDERED: COMBIGAN OPHT DR5 ML EACH EYE (21:02)
[2017-12-26] MEDS ORDERED: FLOMAX0.4 MG PO (21:03)
[2017-12-26] MEDS ORDERED: TOPROL XL25 MG PO (21:04)
[2017-12-26] MEDS ORDERED: PREDNISONE5 MG PO (21:04)
[2017-12-26] MEDS ORDERED: ADVAIR 250/501 DISK INH (21:04)
[2017-12-27 06:52] VITALS: BP 158/91
[2017-12-27 10:06] VITALS: BP 160/75
[2017-12-27 12:31] VITALS: BP 176/65
[2017-12-27 17:43] VITALS: BP 144/58
[2017-12-27 20:00] VITALS: BP 130/51
[2017-12-28] VITALS: BP 142/62
[2017-12-28 04:00] VITALS: BP 134/53
[2017-12-28 09:20] VITALS: BP 177/83
[2017-12-28 11:43] VITALS: BP 141/74
[2017-12-28 16:10] VITALS: BP 162/74
[2017-12-28 20:00] VITALS: BP 115/71
[2017-12-29] VITALS: BP 153/68
[2017-12-29 04:00] VITALS: BP 140/63
[2017-12-29 08:22] VITALS: Ht 177.8 cm; Wt 102.0 kg
[2017-12-29 11:56] VITALS: BP 154/61
[2017-12-29 15:35] VITALS: BP 120/54
[2017-12-29 21:11] VITALS: BP 141/69
[2017-12-30 04:27] VITALS: BP 125/56
[2017-12-30 06:11] LABS: BASOPHILS 0.4 % (0-2); EOSINOPHILS 2.3 % (0-7); HEMATOCRIT 35.4 % (42.0-54.0); HEMOGLOBIN 10.9 g/dL (13.5-17.5); IMMATURE GRANULOCYTES 0.6 % (0-5); LYMPHOCYTES 24.6 % (15-50); MCH 30.3 pg (26.0-34.0); MCHC 30.8 g/dL (31.0-37.0); MCV 98.3 fL (80.0-100.0); MEAN PLATELET VOLUME 10.5 fL (7.4-10.4); MONOCYTES 14.8 % (2-11); NEUTROPHILS 57.3 % (40-80); PLATELET COUNT 149 10x3/uL (130-400); RDW 12.5 % (11.5-14.5); WBC 5.2 10x3/uL (4.8-10.8)
[2017-12-30 06:23] LABS: CALC OSMOLALITY 287 mosm/kg (275-300); CALCIUM 7.8 mg/dL (8.5-10.1); CHLORIDE - SERUM 102 mmol/L (98-107); CREATININE - SERUM 0.8 mg/dL (0.6-1.3); GLUCOSE 102 mg/dL (74-106); POTASSIUM - SERUM 3.8 mmol/L (3.5-5.1); SODIUM 143 mmol/L (136-145); UREA NITROGEN 21 mg/dL (7-18); eGFR NON AFRICAN AMERICAN > 90 mL/min (90-120)
[2017-12-30 06:25] LABS: CARBON DIOXIDE 39.9 mmol/L (21.0-32.0)
[2017-12-30 08:37] VITALS: BP 147/63
[2017-12-30 12:13] VITALS: BP 130/49
[2017-12-30 16:46] VITALS: BP 123/87
[2017-12-30 20:00] VITALS: BP 133/64
[2017-12-31 04:00] VITALS: BP 110/59
[2017-12-31 05:15] LABS: BASOPHILS 0.4 % (0-2); HEMATOCRIT 34.4 % (42.0-54.0); HEMOGLOBIN 10.6 g/dL (13.5-17.5); IMMATURE GRANULOCYTES 0.6 % (0-5); LYMPHOCYTES 22.1 % (15-50); MCH 30.5 pg (26.0-34.0); MCHC 30.8 g/dL (31.0-37.0); MCV 98.9 fL (80.0-100.0); MEAN PLATELET VOLUME 10.6 fL (7.4-10.4); MONOCYTES 13.3 % (2-11); NEUTROPHILS 60.6 % (40-80); PLATELET COUNT 143 10x3/uL (130-400); RBC 3.48 10x6/uL (4.20-6.10); RDW 12.6 % (11.5-14.5); WBC 5.4 10x3/uL (4.8-10.8)
[2017-12-31 05:37] LABS: CALC OSMOLALITY 288 mosm/kg (275-300); CALCIUM 8.1 mg/dL (8.5-10.1); CARBON DIOXIDE 38.9 mmol/L (21.0-32.0); CHLORIDE - SERUM 104 mmol/L (98-107); CREATININE - SERUM 0.7 mg/dL (0.6-1.3); GLUCOSE 105 mg/dL (74-106); POTASSIUM - SERUM 3.5 mmol/L (3.5-5.1); SODIUM 143 mmol/L (136-145); UREA NITROGEN 23 mg/dL (7-18); eGFR NON AFRICAN AMERICAN > 90 mL/min (90-120)
[2017-12-31] MEDS ORDERED: PLAVIX75 MG PO (10:19)
[2017-12-31] MEDS ORDERED: AUGMENTIN 500-11 TA1 PO (10:20)
[2017-12-31 10:41] VITALS: BP 116/49
== END 2017-12-31 11:26 | disposition home or self-care (01) | DRG 246 ==
LOC: D.ER 15:56 → OBSVTIME 19:08 → D.M2 19:08 → D.SDCHOLD 19:08 → D.M2 12-27 12:53
PROVIDERS: Emergency Medicine; Internal Medicine Interventional Cardiology; Internal Medicine Nephrology
PROC: 4A023N7 Measurement of Cardiac Sampling and Pressure, Left Heart, Percutaneous Approach (ICD-10-PCS; 2017-12-29)
PROC: B2111ZZ Fluoroscopy of Multiple Coronary Arteries using Low Osmolar Contrast (ICD-10-PCS; 2017-12-29)
PROC: B2151ZZ Fluoroscopy of Left Heart using Low Osmolar Contrast (ICD-10-PCS; 2017-12-29)
PROC: B240ZZ3 Ultrasonography of Single Coronary Artery, Intravascular (ICD-10-PCS; 2017-12-29)
PROC: 027035Z Dilation of Coronary Artery, One Artery with Two Drug-eluting Intraluminal Devices, Percutaneous Approach (ICD-10-PCS; principal; 2017-12-29 12:45)
PROC: 027035Z Dilation of Coronary Artery, One Artery with Two Drug-eluting Intraluminal Devices, Percutaneous Approach (ICD-10-PCS; 2017-12-30)
PROC: B240ZZ3 Ultrasonography of Single Coronary Artery, Intravascular (ICD-10-PCS; 2017-12-30)
DX: I25.119 Atherosclerotic heart disease of native coronary artery with unspecified angina pectoris (principal); J44.1 Chronic obstructive pulmonary disease with (acute) exacerbation; J40 Bronchitis, not specified as acute or chronic; I10 Essential (primary) hypertension; E78.5 Hyperlipidemia, unspecified; D64.9 Anemia, unspecified; Z95.5 Presence of coronary angioplasty implant and graft

== ENCOUNTER → 2019-04-29 09:55 | Outpatient (CLI) | payer MEDICARE ==
[2017-12-29 08:22] VITALS: BMI 32.5
[~2019-04-29 09:55] MED LIST changes: +ADVAIR 250/501 DISK INH; +AUGMENTIN 500-11 TA1 PO; +COMBIGAN OPHT DR5 ML EACH EYE; +FLOMAX0.4 MG PO; +FUROSEMIDE20 MG PO; +PLAVIX75 MG PO; +TOPROL XL25 MG PO
--- NOTE | 2019-05-03 15:03 | EC ---
PATIENT:NICOLLE ROBERTSON DATE OF SERVICE: 04/29/19 SEX: M MEDICAL RECORD: [id number] DATE OF : 34 LOCATION:D[facility] AGE OF PATIENT: 83 ADMISSION DATE: 04/29/19 REFERRING PHYSICIAN: INTERPRETING PHYSICIAN: DILLON PISANO MD ECHOCARDIOGRAM REPORT ECHO CHARGES 4 ECHO COMPLETE Date: 04/29/19 CLINICAL DIAGNOSIS: YOUNG/ABNORMAL EKG/PVC'S H/O CAD/HTN ECHOCARDIOGRAPHIC MEASUREMENTS (adult normal given) AC root (d.<3.7cm) 3.5 cm LV Septum d (<1.2 cm> 1.3 cm Valve Excursion 1.2 cm LV Septum (systole) 1.8 cm Left Atria (s.<4.0cm> 3.8 cm LVPW d(<1.2cm) 1.1 cm RV (d.<2.3cm) 2.6 cm LVPW (sytole) 2.0 cm LV diastole(<5.6CM) 6.4 cm MV E-F(>70mm/sec) cm LV systole 3.8 cm LVOT Diameter 2.0 cm MV exc.(>10mm) cm Est.ejection fraction (50-75%) % DOPPLER: LVIT cm/sec A 71.0 cm/sec E 59.0 cm/sec LA cm/sec RVSP 37.0 mmHg LVOT 127 cm/sec AOP1/2T m/s Asc. Ao 163 cm/sec RVOT cm/sec RA cm/sec PA cm/sec AV Gradient Peak 11.0 mmHg AV Mean 5.0 mmHg AV Area 2.2 cm MV Gradient Peak 3.7 mmHg MV Mean 0.97 mmHg MV Area cm COMMENTS: OP - HC [employer] Advanced Operator Maintainer: 1 JULIENNE KERNSOE Nipple Threader: 3 Dr. Arroyo TAPE# PACS Pericardial Effusion Y DATE OF SERVICE: 04/29/2019 Adequate 2-D echo, color-flow and spectral Doppler, and M-mode. Borderline LVH. LV internal dimensions are normal. Wall motion is normal. EF is greater than or equal to 55%. Aortic valve sclerosis without stenosis by Doppler interrogation. Left atrium is normal at 3.8 cm. Mitral valve shows no prolapse. Trace MR. Right-sided chambers are grossly normal. Trace TR. TRANSINT:[id number] Voice Confirmation ID: [id number] DOCUMENT ID: [id number] ECHOCARDIOGRAM REPORT [id number] NICOLLE ROBERTSON,DILLON Kramer MD at 1503 CC: [id number] DICTATION DATE: 05/03/19 1237 FACILITIES SPECIALIST: 05/03/19 1247 DEP CLI 04/29/19 [place] [id number] [place] [id number]
== END | disposition home or self-care (01) ==
LOC: D.HCCARDIO 09:55
PROVIDERS: ATTEND Internal Medicine Interventional Cardiology
DX: I25.10 Atherosclerotic heart disease of native coronary artery without angina pectoris (principal)